=== PATIENT | female | born 1955 | race African-American/Black ===

== ENCOUNTER 2020-09-18 16:50 | Emergency (ER) | payer BC ==
[~2020-09-18] VITALS: Ht 170.2 cm; Wt 108.9 kg
--- NOTE | 2020-09-18 17:16 | NUR ---
[id number] HOME C/O EPIGASTRIC PAIN W/ NAUSEA AND VOMITING. PATIENT A/OX4, BREATHING EVEN AND UNLABORED, NO SOB NOTED, NEEDS ATTENDED.
[2020-09-18] MEDS ORDERED: ONDANSETRON HCL/PF 4 MG/2 ML VIAL ONE (18:06)
--- NOTE | 2020-09-18 18:21 | NUR ---
US TECH AT BEDSIDE.
[2020-09-18 18:24] LABS: BASOPHILS % (AUTO) 0.2 % (0.0-2.0); EOSINOPHILS % (AUTO) 0.3 % (0.0-6.0); HEMATOCRIT 45 % (33-45); HEMOGLOBIN 15.5 g/dL (11.5-14.8); LYMPHOCYTES # (AUTO) 0.6 /CMM (0.8-4.8); LYMPHOCYTES % (AUTO) 4.1 % (20.0-44.0); MEAN CORPUSCULAR HGB CONC 34 g/dl (31.0-36.0); MEAN CORPUSCULAR VOLUME 90 fL (82-100); MONOCYTES # (AUTO) 0.4 /CMM (0.1-1.30); NEUTROPHILS # (AUTO) 13.3 /CMM (1.8-8.9); NEUTROPHILS % (AUTO) 92.4 % (43.0-81.0); PLATELET COUNT (AUTO) 388 /CMM (150-450); RED BLOOD CELL COUNT(AUTO) 5.01 MIL/uL (4.0-5.2); WHITE BLOOD COUNT (AUTO) 14.4 K/uL (4.3-11.0)
[2020-09-18] MEDS ORDERED: IV NS 0.9% 1,000 ML BAG IV ONE (18:30)
[2020-09-18] MEDS ORDERED: ONDANSETRON HCL/PF - ER 4 MG/2 ML VIAL IV ONE (18:30)
--- NOTE | 2020-09-18 19:16 | NUR ---
Lactic 2.6
[2020-09-18 19:17] LABS: ALANINE AMINOTRANSFERASE 264 U/L (12-78); ALBUMIN 3.6 g/dL (3.4-5.0); ALKALINE PHOSPHATASE 620 U/L (46-116); ASPARTATE AMINOTRANSFERASE 187 U/L (15-37); BILIRUBIN,DIRECT 1.8 mg/dL (0.0-0.2); BILIRUBIN,TOTAL 2.2 mg/dL (0.2-1.0); CARBON DIOXIDE 27 mmol/L (21-32); CHLORIDE 102 mmol/L (98-107); CREATININE 1.2 mg/dL (0.6-1.3); GLUCOSE 171 mg/dL (74-106); POTASSIUM 3.7 mmol/L (3.5-5.1); SODIUM SERUM 141 mmol/L (136-145); TOTAL PROTEIN, SERUM 7.3 g/dL (6.4-8.2); UREA NITROGEN, BLOOD 17 mg/dL (7-18)
[2020-09-18 19:19] LABS: LIPASE 10122 U/L (73-393)
--- NOTE | 2020-09-18 19:28 | NUR ---
PT IS A&0X4. VSS RESPIRAIONS EVEN AND UNLABORED. PT STATES HER PAIN BETTER AFTER BEING MEDICATED. CALL LIGHT WITHIN REACH. WILL CONITNUE TO MONITOR
[2020-09-18 19:31] VITALS: BP 177/75
--- NOTE | 2020-09-18 20:05 | NUR ---
COVID SWAB SENT TO LAB
--- NOTE | 2020-09-18 20:28 | NUR ---
PT SIGNED AMA
--- NOTE | 2020-09-18 20:30 | NUR ---
Patient does not wish to proceed with medical care recommended by Dr. KHALIL. Patient given information related to possible complications, up to and including , which could occur as a result of leaving the hospital at this time. Patient verbalizes understanding of risks involved due to leaving against medical advice. Patient has signed AMA form.
--- NOTE | 2020-09-18 21:02 | NUR ---
NEG COVID PER LAB
== END 2020-09-18 21:03 | disposition left against medical advice (07) ==
LOC: ER 16:57 → TELE 20:23 → UNDOADMIN 20:23 → ER 21:03
DX: K80.10 Calculus of gallbladder with chronic cholecystitis without obstruction (principal); K85.90 Acute pancreatitis without necrosis or infection, unspecified; R11.2 Nausea with vomiting, unspecified; Z20.828 Contact with and (suspected) exposure to other viral communicable diseases; G70.00 Myasthenia gravis without (acute) exacerbation; K21.9 Gastro-esophageal reflux disease without esophagitis
CPT/HCPCS: 36415; 76705; 80048; 80076; 82962; 83605; 83690; 84484; 85025; 87426; 96361; 96374; 99291; C9803; J2405; J7030